=== PATIENT | female | born 1970 | race American Indian/Alaskan Native ===

== ENCOUNTER 2018-12-22 20:16 | Inpatient (IN) | payer OTHER ==
--- NOTE | 2018-12-22 20:41 | Emergency Department Report ---
Blank Doc - Documentation Documentation: This is a 48-year-old female that presents with SOB and bilateral leg swelling. This initial assessment/diagnostic orders/clinical plan/treatment(s) is/are subject to change based on patient's health status, clinical progression and re- assessment by fellow clinical providers in the ED. Further treatment and workup at subsequent clinical providers discretion. Patient/guardians urged not to elope from the ED as their condition may be serious if not clinically assessed and managed. Initial orders include: 1- Patient sent to MAIN ED for further evaluation and treatment 2- labs 3- EKG 4- CXR
[2018-12-22 21:11] LABS: Eosinophils # (Auto) 0.1 K/mm3 (0.0-0.4); Eosinophils % (Auto) 2.7 % (0.0-4.3); Hematocrit 37.5 % (30.3-42.9); Hemoglobin 12.5 gm/dl (10.1-14.3); Lymphocytes # (Auto) 1.3 K/mm3 (1.2-5.4); Lymphocytes % (Auto) 27.8 % (13.4-35.0); Mean Corpuscular HGB Conc 34 % (30-34); Mean Corpuscular Volume 94 fl (79-97); Monocytes # (Auto) 0.4 K/mm3 (0.0-0.8); Monocytes % (Auto) 7.5 % (0.0-7.3); Platelet Count 157 K/mm3 (140-440); Red Blood Count 3.99 M/mm3 (3.65-5.03)
[2018-12-22 21:36] LABS: Calcium 8.9 mg/dL (8.4-10.2)
[2018-12-22] MEDS ORDERED: NORMODYNE PO ONE (21:38)
--- NOTE | 2018-12-22 21:38 | Emergency Department Report ---
ED General Adult HPI - General Chief complaint: Dyspnea/Respdistress Stated complaint: LEG SWELLING/SOB Time Seen by Provider: 12/22/18 20:39 Source: patient Mode of arrival: Ambulatory Limitations: No Limitations - History of Present Illness Initial comments: CC: hot flashes, feet swelling, panic attacks HPI: Mrs. Orantes is a 48-year-old female with history of hypertension who presents with 1 month of feet swelling and shortness of breath. She felt as if she was going to menopause with hot flashes. She's had anxiety type attacks where she cannot breathe. While standing at her job at the [employer], she has bilateral feet swelling which improves with elevation. She has not taken blood pressure medicine in over one year. She no longer has health insurance at this time. Denies chest pain. Denies fever. Denies weight loss. She does not smoke tobacco. She does smoke marijuana. She has 8 children and one grandchild. -: Gradual, month(s) (1) Location: left, right, lower extremity Consistency: constant Improves with: other (elevation) Associated Symptoms: shortness of breath - Related Data Allergies Allergy/AdvReac Type Severity Reaction Status Date / Time No Known Allergies Allergy Verified 12/22/18 21:41 ED Review of Systems ROS: Stated complaint: LEG SWELLING/SOB Other details as noted in HPI Comment: All other systems reviewed and negative Constitutional: malaise Respiratory: shortness of breath Cardiovascular: edema ED Past Medical Hx - Past Medical History Previous Medical History?: Yes Hx Hypertension: Yes - Surgical History Past Surgical History?: No - Social History Smoking Status: Never Smoker Substance Use Type: Marijuana ED Physical Exam - General Limitations: No Limitations General appearance: alert, in no apparent distress - Head Head exam: Present: atraumatic, normocephalic - Eye Eye exam: Present: normal appearance - ENT ENT exam: Present: mucous membranes moist - Neck Neck exam: Present: normal inspection, full ROM - Respiratory Respiratory exam: Present: normal lung sounds bilaterally. Absent: respiratory distress, wheezes, rales, rhonchi - Cardiovascular Cardiovascular Exam: Present: regular rate, normal rhythm, normal heart sounds. Absent: systolic murmur, diastolic murmur, rubs, gallop - GI/Abdominal GI/Abdominal exam: Present: soft, normal bowel sounds. Absent: distended, tenderness, guarding, rebound - Extremities Exam Extremities exam: Present: pedal edema - Neurological Exam Neurological exam: Present: alert, oriented X3 - Psychiatric Psychiatric exam: Present: normal affect, normal mood - Skin Skin exam: Present: warm, dry, intact, normal color. Absent: rash ED Course Vital Signs 12/22/18 12/22/18 12/22/18 20:40 21:51 22:10 Temperature 97.5 F L 98.2 F Pulse Rate 102 H 98 H 94 H Respiratory 18 24 Rate Blood Pressure 223/162 212/149 Blood Pressure 224/160 [Left] O2 Sat by Pulse 98 95 Oximetry ED Medical Decision Making - Lab Data Result diagrams: 12/22/18 21:00 12/22/18 21:00 Laboratory Results - last 24 hr 12/22/18 12/22/18 21:00 21:00 WBC 4.7 RBC 3.99 Hgb 12.5 Hct 37.5 MCV 94 MCH 31 MCHC 34 RDW 14.0 Plt Count 157 Lymph % (Auto) 27.8 [place] % (Auto) 7.5 H Eos % (Auto) 2.7 Baso % (Auto) 1.0 Lymph # 1.3 [place]idge # 0.4 Eos # 0.1 Baso # 0.0 Seg Neutrophils % 61.0 Seg Neutrophils # 2.9 Sodium 138 Potassium 3.2 L Chloride 99.3 Carbon Dioxide 27 Anion Gap 15 BUN 24 H Creatinine 2.4 H Estimated GFR 22 BUN/Creatinine Ratio 10 Glucose 97 Calcium 8.9 Total Bilirubin 1.10 AST 20 ALT 26 Alkaline Phosphatase 135 H NT-Pro-B Natriuret Pep 53607 H Total Protein 6.1 L Albumin 3.0 L Albumin/Globulin Ratio 1.0 - EKG Data 12/22/18 23:20 EKG obtained 2050 Normal sinus rhythm rate 90 beats a minute normal axis prolonged QT interval positive LVH no evidence of acute infarct or ischemia - Radiology Data Radiology results: report reviewed, image reviewed Right-sided pleural effusion - Medical Decision Making Mrs. Orantes presents with quaternary stage severe untreated hypertension causing new-onset congestive heart failure, chronic kidney disease. Given IV labetalol here in the ED. Will need further treatment and evaluation. Admitted to hospital service. Labs reviewed noted for markedly elevated BNP 29,000. Elevated BUN/creatinine. Decreased GFR. Chest x-ray notable for right pleural effusion. Critical care attestation.: If time is entered above; I have spent that time in minutes in the direct care of this critically ill patient, excluding procedure time. ED Disposition Clinical Impression: Hypertensive emergency, Acute congestive heart failure, Acute renal insufficiency Disposition: OP ADMIT IP TO THIS HOSP Is pt being admited?: Yes Does the pt Need Aspirin: No Condition: Stable Instructions: Hypertension (ED)
--- NOTE | 2018-12-22 22:07 | XRay Report ---
PROCEDURE: XR CHEST ROUTINE 2V TECHNIQUE: PA and lateral chest radiographs were obtained. HISTORY: sob... leg swelling x 2wks COMPARISONS: None. FINDINGS: Heart: Heart is enlarged.. Mediastinum/Vessels: Normal. Lungs/Pleural space: Lungs are expanded. There are infiltrates at the lung bases. There is a small r ight pleural effusion. There is no pneumothorax.. Bony thorax: No acute osseous abnormality. IMPRESSION: Heart is enlarged.. Lungs are expanded. There are infiltrates at the lung bases. There is a small right pleural effusion. There is no pneumothorax... This document is electronically signed by Guillermo Blue MD., December 22 2018 10:05:31 PM ET
[2018-12-22] MEDS ORDERED: NORMODYNE IV ONE (22:34)
[2018-12-22] MEDS ORDERED: APRESOLINE IV ONE (23:18)
[2018-12-23] MEDS ORDERED: IBUPROFEN PO PRN (05:37)
[2018-12-23] MEDS ORDERED: REGLAN IV PRN ×2 (05:37→05:51)
[2018-12-23] MEDS ORDERED: TYLENOL PO PRN (05:37)
[2018-12-23] MEDS ORDERED: SODIUM CHLORIDE FLUSH SYRINGE 10 ML IV PRN (05:37)
[2018-12-23] MEDS ORDERED: MORPHINE IV PRN (05:37)
[2018-12-23] MEDS ORDERED: ZOFRAN IV PRN (05:37)
--- NOTE | 2018-12-23 05:42 | History and Physical Report ---
History of Present Illness Date of examination: 12/22/18 Date of admission: 12/22/18 23:18 Chief complaint: Swelling of feet-1 month Shortness of breath for 1 month History of present illness: 48-year-old female with history of hypertension -noncompliant for the past 1 year and not taking any medications because she lost her insurance comes in for increasing shortness of breath and swelling of the feet. This has been going on for 1 month. No chest pain. 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 Also shortness of breath on walking about 1 block. Patient has class III NYHA symptoms. No palpitations. No orthopnea. No PND attacks. No diaphoresis. No chest pain. Past Medical History Previous Medical History?: Yes Hx Hypertension: Yes Surgical History Past Surgical History?: No Social History Smoking Status: Never Smoker Substance Use Type: Marijuana Family history Htn Review of Systems ROS: Stated complaint: LEG SWELLING/SOB Other details as noted in HPI Comment: All other systems reviewed and negative Constitutional: malaise Respiratory: shortness of breath Cardiovascular: edema Medications and Allergies Allergies Allergy/AdvReac Type Severity Reaction Status Date / Time No Known Allergies Allergy Verified 12/22/18 21:41 Home Medications Medication Instructions Recorded Confirmed Last Taken Type No Known Home Medications [No 12/22/18 12/22/18 Unknown History Reported Home Medications] Exam - Constitutional Vitals: Temp Pulse Resp BP Pulse Ox 98.2 F 81 16 182/102 95 12/23/18 04:09 12/23/18 04:09 12/23/18 04:09 12/23/18 04:09 12/23/18 04:09 General appearance: Present: no acute distress, well-nourished - EENT Eyes: Present: PERRL ENT: hearing intact, clear oral mucosa - Neck Neck: Present: supple, normal ROM - Respiratory Respiratory effort: normal Respiratory: bilateral: CTA - Cardiovascular Heart rate: 96 Rhythm: regular Heart Sounds: Present: S1 & S2. Absent: rub, click - Extremities Extremities: no ischemia, pulses intact, pulses symmetrical, No edema Extremity abnormal: edema (2+) Peripheral Pulses: within normal limits - Abdominal General gastrointestinal: Present: soft, non-tender, non-distended, normal bowel sounds Female genitourinary: Present: normal - Rectal Rectal Exam: deferred - Integumentary Integumentary: Present: clear, warm, dry - Musculoskeletal Musculoskeletal: gait normal, strength equal bilaterally - Psychiatric Psychiatric: appropriate mood/affect, intact judgment & insight - Neurologic Neurologic: CNII-XII intact, moves all extremities - Allied Health Allied health notes reviewed: nursing, case management Results - Labs CBC & Chem 7: 12/22/18 21:00 12/22/18 21:00 Labs: Laboratory Last Values WBC 4.7 K/mm3 (4.5-11.0) 12/22/18 21:00 RBC 3.99 M/mm3 (3.65-5.03) 12/22/18 21:00 Hgb 12.5 gm/dl (10.1-14.3) 12/22/18 21:00 Hct 37.5 % (30.3-42.9) 12/22/18 21:00 MCV 94 fl (79-97) 12/22/18 21:00 MCH 31 pg (28-32) 12/22/18 21:00 MCHC 34 % (30-34) 12/22/18 21:00 RDW 14.0 % (13.2-15.2) 12/22/18 21:00 Plt Count 157 K/mm3 (140-440) 12/22/18 21:00 Lymph % (Auto) 27.8 % (13.4-35.0) 12/22/18 21:00 Luce % (Auto) 7.5 % (0.0-7.3) H 12/22/18 21:00 Eos % (Auto) 2.7 % (0.0-4.3) 12/22/18 21:00 Baso % (Auto) 1.0 % (0.0-1.8) 12/22/18 21:00 Lymph # 1.3 K/mm3 (1.2-5.4) 12/22/18 21:00 Luce # 0.4 K/mm3 (0.0-0.8) 12/22/18 21:00 Eos # 0.1 K/mm3 (0.0-0.4) 12/22/18 21:00 Baso # 0.0 K/mm3 (0.0-0.1) 12/22/18 21:00 Seg Neutrophils % 61.0 % (40.0-70.0) 12/22/18 21:00 Seg Neutrophils # 2.9 K/mm3 (1.8-7.7) 12/22/18 21:00 Sodium 138 mmol/L (137-145) 12/22/18 21:00 Potassium 3.2 mmol/L (3.6-5.0) L 12/22/18 21:00 Chloride 99.3 mmol/L (98-107) 12/22/18 21:00 Carbon Dioxide 27 mmol/L (22-30) 12/22/18 21:00 15 mmol/L 12/22/18 21:00 BUN 24 mg/dL (7-17) H 12/22/18 21:00 2.4 mg/dL (0.7-1.2) H 12/22/18 21:00 Estimated GFR 22 ml/min 12/22/18 21:00 10 % 12/22/18 21:00 Glucose 97 mg/dL (65-100) 12/22/18 21:00 Calcium 8.9 mg/dL (8.4-10.2) 12/22/18 21:00 1.10 mg/dL (0.1-1.2) 12/22/18 21:00 AST 20 units/L (5-40) 12/22/18 21:00 ALT 26 units/L (7-56) 12/22/18 21:00 135 units/L (35-129) H 12/22/18 21:00 NT-Pro-B Natriuret Pep 94379 pg/mL (0-450) H 12/22/18 21:00 6.1 g/dL (6.3-8.2) L 12/22/18 21:00 3.0 g/dL (3.9-5) L 12/22/18 21:00 1.0 % 12/22/18 21:00 Short CBC 12/22/18 Range/Units 21:00 WBC 4.7 (4.5-11.0) K/mm3 Hgb 12.5 (10.1-14.3) gm/dl Hct 37.5 (30.3-42.9) % Plt Count 157 (140-440) K/mm3 BMP 12/22/18 21:00 Sodium 138 Potassium 3.2 L Chloride 99.3 Carbon Dioxide 27 BUN 24 H Creatinine 2.4 H Glucose 97 Calcium 8.9 Liver Function 12/22/18 Range/Units 21:00 Total Bilirubin 1.10 (0.1-1.2) mg/dL AST 20 (5-40) units/L ALT 26 (7-56) units/L Alkaline Phosphatase 135 H (35-129) units/L Albumin 3.0 L (3.9-5) g/dL - Imaging and Cardiology EKG: report reviewed (heart rate of 97/m. Severe LVH with secondary repol arization abnormalities.) Imaging and Cardiology: Chest x-ray IMPRESSION: Heart is enlarged.. Lungs are expanded. There are infiltrates at the lung bases. There is a small right pleural effusion. There is no pneumothorax... Assessment and Plan Advance Directives: Yes (full code) VTE prophylaxis?: Chemical Plan of care discussed with patient/family: Yes - Patient Problems (1) Hypertensive emergency Current Visit: Yes Status: Acute Plan to address problem: Patient initiated on losartan 100 mg once a day, amlodipine 10 mg once a day and Coreg 6.25 mg every 12 hours. IV labetalol and IV hydralazine was given in the emergency room. IV hydralazine 10 mg every 3 hours when necessary to continue for blood pressure more than 160s/100 (2) Acute congestive heart failure Current Visit: Yes Status: Acute Qualifiers: Heart failure type: diastolic Qualified Code(s): I50.31 - Acute diastolic (congestive) heart failure Plan to address problem: IV Lasix initiated at 40 mg every 24 Echocardiogram ordered Cardiology consult requested (3) Acute renal insufficiency Current Visit: Yes Status: Acute Plan to address problem: Acute kidney injury Nephrology consult requested Possible ATN versus chronic kidney disease (4) Hypokalemia Current Visit: Yes Status: Acute Plan to address problem: Supplemented (5) DVT prophylaxis Current Visit: Yes Status: Acute Plan to address problem: Heparin 5000 every 12 and GI prophylaxis initiated
[2018-12-23] MEDS ORDERED: K-DUR PO ONE (05:55)
[2018-12-23] MEDS: NORVASC PO SCH ×2 (06:02→09:35)
[2018-12-23] MEDS: APRESOLINE IV PRN (06:36)
[2018-12-23] MEDS: COZAAR PO SCH ×2 (07:20→09:35)
[2018-12-23] MEDS: PEPCID PO SCH ×2 (09:36→21:44)
[2018-12-23] MEDS: COREG PO SCH ×2 (09:36→21:43)
[2018-12-23] MEDS: SODIUM CHLORIDE FLUSH SYRINGE 10 ML IV SCH ×2 (09:37→21:44)
[2018-12-23] MEDS ORDERED: PEPCID PO SCH (10:00)
--- NOTE | 2018-12-23 12:23 | Consultation ---
History of Present Illness Consult date: 12/23/18 Requesting physician: JEANNETTE LOPEZ Consult reason: congestive heart failure History of present illness: The pt is a 48-year-old female with history of uncontrolled hypertension. She is previously unknown to our practice. She presented with c/o BLE swelling and progressively worsening SOB for the past 1 month. She has not taken blood pressure medicine in over one year due to lack of health insurance. She denies any chest pain, palpitations, n/v, diaphoresis, dizziness or syncope. She denies any known CAD, AMI or HF. No prior cardiac w/u. Past History Past Medical History: hypertension Medications and Allergies Allergies Allergy/AdvReac Type Severity Reaction Status Date / Time No Known Allergies Allergy Verified 12/22/18 21:41 Home Medications Medication Instructions Recorded Confirmed Last Taken Type No Known Home Medications [No 12/22/18 12/22/18 Unknown History Reported Home Medications] Active Meds: Active Medications Acetaminophen (Tylenol) 650 mg PO Q4H PRN PRN Reason: Pain MILD(1-3)/Fever >100.5/BALDWIN Amlodipine Besylate (Norvasc) 10 mg PO QDAY [facility] Last Admin: 12/23/18 09:35 Dose: 10 mg Documented by: Carvedilol (Coreg) 6.25 mg PO BID [facility] Last Admin: 12/23/18 09:36 Dose: 6.25 mg Documented by: Famotidine (Pepcid) 10 mg PO BID [facility] Last Admin: 12/23/18 09:36 Dose: 10 mg Documented by: Hydralazine HCl (Apresoline) 10 mg IV Q3H PRN PRN Reason: Blood Pressure Last Admin: 12/23/18 06:36 Dose: 10 mg Documented by: Ibuprofen (Ibuprofen) 600 mg PO Q6H PRN PRN Reason: Pain, Mild (1-3) Losartan Potassium (Cozaar) 100 mg PO QDAY [facility] Last Admin: 12/23/18 09:35 Dose: 100 mg Documented by: Metoclopramide HCl (Reglan) 5 mg IV Q6H PRN PRN Reason: Nausea And Vomiting Morphine Sulfate (Morphine) 2 mg IV Q4H PRN PRN Reason: Pain, Moderate (4-6) Ondansetron HCl (Zofran) 4 mg IV Q8H PRN PRN Reason: Nausea And Vomiting Sodium Chloride (Sodium Chloride Flush Syringe 10 Ml) 10 ml IV BID LUDIVINA Last Admin: 12/23/18 09:37 Dose: 10 ml Documented by: Sodium Chloride (Sodium Chloride Flush Syringe 10 Ml) 10 ml IV PRN PRN PRN Reason: LINE FLUSH Review of Systems Constitutional: no weight loss, no weight gain, no fever, no chills, no sweats Ears, nose, mouth and throat: no ear pain, no nose pain, no sinus pressure, no sinus pain Cardiovascular: edema, shortness of breath, dyspnea on exertion, high blood pressure, leg edema, decreased exercise tolerance, no chest pain, no palpitations, no rapid/irregular heart beat, no syncope, no lightheadedness Respiratory: shortness of breath, dyspnea on exertion, no cough, no congestion, no wheezing, no pain on inspiration Gastrointestinal: no abdominal pain, no nausea, no vomiting, no diarrhea, no constipation, no change in bowel habits Genitourinary Female: no pelvic pain, no flank pain, no dysuria, no urinary frequency, no urgency Musculoskeletal: no neck stiffness, no neck pain, no shooting arm pain, no arm numbness/tingling, no low back pain, no shooting leg pain Integumentary: no rash, no pruritis, no redness, no sores, no wounds Neurological: no head injury, no paralysis, no weakness, no parathesias, no numbness, no tingling, no seizures, no syncope Psychiatric: no anxiety Endocrine: no cold intolerance, no heat intolerance Hematologic/Lymphatic: no easy bruising, no easy bleeding Allergic/Immunologic: no urticaria, no wheezing Physical Examination Vital Signs Temp Pulse Resp BP Pulse Ox 97.5 F L 102 H 18 223/162 98 12/22/18 20:40 12/22/18 20:40 12/22/18 20:40 12/22/18 20:40 12/22/18 20:40 General appearance: no acute distress HEENT: Positive: PERRL, Normocephaly, Mucus Membranes Moist Neck: Positive: neck supple, trachea midline Cardiac: Positive: Reg Rate and Rhythm, S1/S2 Lungs: Positive: Decreased Breath Sounds Neuro: Positive: Grossly Intact Abdomen: Negative: Tender Skin: Negative: Rash Musculoskeletal: No Pain Extremities: Present: +2 Edema (BLE) Results 12/22/18 21:00 12/22/18 21:00 Cardiac Enzymes 12/22/18 Range/Units 21:00 AST 20 (5-40) units/L CBC 12/22/18 Range/Units 21:00 WBC 4.7 (4.5-11.0) K/mm3 RBC 3.99 (3.65-5.03) M/mm3 Hgb 12.5 (10.1-14.3) gm/dl Hct 37.5 (30.3-42.9) % Plt Count 157 (140-440) K/mm3 Lymph # 1.3 (1.2-5.4) K/mm3 Pratt # 0.4 (0.0-0.8) K/mm3 Eos # 0.1 (0.0-0.4) K/mm3 Baso # 0.0 (0.0-0.1) K/mm3 Comprehensive Metabolic Panel 12/22/18 Range/Units 21:00 Sodium 138 (137-145) mmol/L Potassium 3.2 L (3.6-5.0) mmol/L Chloride 99.3 (98-107) mmol/L Carbon Dioxide 27 (22-30) mmol/L BUN 24 H (7-17) mg/dL Creatinine 2.4 H (0.7-1.2) mg/dL Glucose 97 (65-100) mg/dL Calcium 8.9 (8.4-10.2) mg/dL AST 20 (5-40) units/L ALT 26 (7-56) units/L Alkaline Phosphatase 135 H (35-129) units/L Total Protein 6.1 L (6.3-8.2) g/dL Albumin 3.0 L (3.9-5) g/dL - Imaging and Cardiology Echo: pending EKG: report reviewed, image reviewed EKG interpretations - Telemetry EKG Rhythm: Sinus Rhythm - EKG Sinus rhythms and dysrhythmias: sinus rhythm Chamber hypertrophy or enlargement: left ventricular hypertro Repolarization changes or abnormalities: repolarization abn secondary to ventricular hypertrophy Assessment and Plan Agree with coreg and amlodipine. D/c losartan in setting of renal insufficiency. Replete K+. Obtain echo. Will defer diuresis to nephrology in setting of renal insufficiency. Further recs to follow per hospital course. The patient has been seen in conjunction with Dr. Castillo who agrees with the assessment and plan of care. - Patient Problems (1) Acute heart failure Current Visit: Yes Status: Acute (2) Uncontrolled hypertension Current Visit: Yes Status: Acute (3) Acute renal failure Current Visit: Yes Status: Acute (4) Hypokalemia Current Visit: Yes Status: Acute
--- NOTE | 2018-12-23 12:25 | Progress Note ---
Assessment and Plan Assessment and plan: Accelerated hypertension. Patient initiated on losartan 100 mg once a day, amlodipine 10 mg once a day and Coreg 6.25 mg every 12 hours. IV labetalol and IV hydralazine was given in the emergency room. IV hydralazine 10 mg every 3 hours when necessary to continue for blood pressure more than 160s/100 Acute CHF. Await echocardiogram to determine etiology ?systolic/diastolic. Cardiology consult. Acute renal failure. Unsure of patient's baseline creatinine. Nephrology consultation pending. Hypokalemia. Replete potassium. History Interval history: No new issues overnight. Hospitalist Physical - Constitutional Vitals: Temp Pulse Resp BP Pulse Ox 98.3 F 82 18 133/91 97 12/23/18 12:13 12/23/18 12:13 12/23/18 12:13 12/23/18 12:13 12/23/18 12:13 General appearance: Present: no acute distress, well-nourished - EENT Eyes: Present: PERRL, EOM intact ENT: hearing intact, clear oral mucosa, dentition normal - Neck Neck: Present: supple, normal ROM - Respiratory Respiratory effort: normal Respiratory: bilateral: CTA - Cardiovascular Rhythm: regular Heart Sounds: Present: S1 & S2. Absent: gallop, rub - Extremities Extremities: no ischemia, No edema, Full ROM - Abdominal General gastrointestinal: soft, non-tender, non-distended, normal bowel sounds - Integumentary Integumentary: Present: clear, warm, dry - Neurologic Neurologic: CNII-XII intact, moves all extremities Results - Labs CBC & Chem 7: 12/22/18 21:00 12/22/18 21:00 Labs: Laboratory Last Values WBC 4.7 K/mm3 (4.5-11.0) 12/22/18 21:00 RBC 3.99 M/mm3 (3.65-5.03) 12/22/18 21:00 Hgb 12.5 gm/dl (10.1-14.3) 12/22/18 21:00 Hct 37.5 % (30.3-42.9) 12/22/18 21:00 MCV 94 fl (79-97) 12/22/18 21:00 MCH 31 pg (28-32) 12/22/18 21:00 MCHC 34 % (30-34) 12/22/18 21:00 RDW 14.0 % (13.2-15.2) 12/22/18 21:00 Plt Count 157 K/mm3 (140-440) 12/22/18 21:00 Lymph % (Auto) 27.8 % (13.4-35.0) 12/22/18 21:00 [place]rentiss % (Auto) 7.5 % (0.0-7.3) H 12/22/18 21:00 Eos % (Auto) 2.7 % (0.0-4.3) 12/22/18 21:00 Baso % (Auto) 1.0 % (0.0-1.8) 12/22/18 21:00 Lymph # 1.3 K/mm3 (1.2-5.4) 12/22/18 21:00 Prentiss # 0.4 K/mm3 (0.0-0.8) 12/22/18 21:00 Eos # 0.1 K/mm3 (0.0-0.4) 12/22/18 21:00 Baso # 0.0 K/mm3 (0.0-0.1) 12/22/18 21:00 Seg Neutrophils % 61.0 % (40.0-70.0) 12/22/18 21:00 Seg Neutrophils # 2.9 K/mm3 (1.8-7.7) 12/22/18 21:00 Sodium 138 mmol/L (137-145) 12/22/18 21:00 Potassium 3.2 mmol/L (3.6-5.0) L 12/22/18 21:00 Chloride 99.3 mmol/L (98-107) 12/22/18 21:00 Carbon Dioxide 27 mmol/L (22-30) 12/22/18 21:00 15 mmol/L 12/22/18 21:00 BUN 24 mg/dL (7-17) H 12/22/18 21:00 2.4 mg/dL (0.7-1.2) H 12/22/18 21:00 Estimated GFR 22 ml/min 12/22/18 21:00 10 % 12/22/18 21:00 Glucose 97 mg/dL (65-100) 12/22/18 21:00 4.8 % (4-6) 12/23/18 05:57 Calcium 8.9 mg/dL (8.4-10.2) 12/22/18 21:00 1.10 mg/dL (0.1-1.2) 12/22/18 21:00 AST 20 units/L (5-40) 12/22/18 21:00 ALT 26 units/L (7-56) 12/22/18 21:00 135 units/L (35-129) H 12/22/18 21:00 NT-Pro-B Natriuret Pep 05586 pg/mL (0-450) H 12/22/18 21:00 6.1 g/dL (6.3-8.2) L 12/22/18 21:00 3.0 g/dL (3.9-5) L 12/22/18 21:00 1.0 % 12/22/18 21:00 Active Medications - Current Medications Current Medications: Generic Name Dose Route Start Last Admin Trade Name Freq PRN Reason Stop Dose Admin Acetaminophen 650 mg 12/23/18 05:37 Tylenol PO Q4H PRN Pain MILD(1-3)/Fever >100.5/BALDWIN Amlodipine Besylate 10 mg 12/23/18 06:00 12/23/18 09:35 Norvasc PO 10 mg QDAY LUDIVINA Administration Carvedilol 6.25 mg 12/23/18 10:00 12/23/18 09:36 Coreg PO 6.25 mg BID LUDIVINA Administration Famotidine 10 mg 12/23/18 10:00 12/23/18 09:36 Pepcid PO 10 mg BID LUDIVINA Administration Hydralazine HCl 10 mg 12/23/18 05:57 12/23/18 06:36 Apresoline IV 10 mg Q3H PRN Administration Blood Pressure Ibuprofen 600 mg 12/23/18 05:37 Ibuprofen PO Q6H PRN Pain, Mild (1-3) Losartan Potassium 100 mg 12/23/18 06:00 12/23/18 09:35 Cozaar PO 100 mg QDAY LUDIVINA Administration Metoclopramide HCl 5 mg 12/23/18 05:51 Reglan IV Q6H PRN Nausea And Vomiting Morphine Sulfate 2 mg 12/23/18 05:37 Morphine IV Q4H PRN Pain, Moderate (4-6) Ondansetron HCl 4 mg 12/23/18 05:37 Zofran IV Q8H PRN Nausea And Vomiting Sodium Chloride 10 ml 12/23/18 10:00 12/23/18 09:37 Sodium Chloride Flush Syringe 10 Ml IV 10 ml BID LUDIVINA Administration Sodium Chloride 10 ml 12/23/18 05:37 Sodium Chloride Flush Syringe 10 Ml IV PRN PRN LINE FLUSH
--- NOTE | 2018-12-23 15:47 | Consultation ---
History of Present Illness - Reason for Consult Consult date: 12/23/18 acute renal failure - History of Present Illness The pt with poorly controlled HTN because she has been out of her meds for the last year, she was admitted for worsening SOB and possible CHF, her labs are signfifcant for elevated BNP and Cr. renal consult was requested for abnormal kidney function Past History Past Medical History: hypertension Medications and Allergies Allergies Allergy/AdvReac Type Severity Reaction Status Date / Time No Known Allergies Allergy Verified 12/22/18 21:41 Home Medications Medication Instructions Recorded Confirmed Last Taken Type No Known Home Medications [No 12/22/18 12/22/18 Unknown History Reported Home Medications] Active Meds: Active Medications Acetaminophen (Tylenol) 650 mg PO Q4H PRN PRN Reason: Pain MILD(1-3)/Fever >100.5/BALDWIN Amlodipine Besylate (Norvasc) 10 mg PO QDAY [facility] Last Admin: 12/23/18 09:35 Dose: 10 mg Documented by: Carvedilol (Coreg) 6.25 mg PO BID [facility] Last Admin: 12/23/18 09:36 Dose: 6.25 mg Documented by: Famotidine (Pepcid) 10 mg PO BID [facility] Last Admin: 12/23/18 09:36 Dose: 10 mg Documented by: Hydralazine HCl (Apresoline) 10 mg IV Q3H PRN PRN Reason: Blood Pressure Last Admin: 12/23/18 06:36 Dose: 10 mg Documented by: Ibuprofen (Ibuprofen) 600 mg PO Q6H PRN PRN Reason: Pain, Mild (1-3) Metoclopramide HCl (Reglan) 5 mg IV Q6H PRN PRN Reason: Nausea And Vomiting Morphine Sulfate (Morphine) 2 mg IV Q4H PRN PRN Reason: Pain, Moderate (4-6) Ondansetron HCl (Zofran) 4 mg IV Q8H PRN PRN Reason: Nausea And Vomiting Sodium Chloride (Sodium Chloride Flush Syringe 10 Ml) 10 ml IV BID [facility] Last Admin: 12/23/18 09:37 Dose: 10 ml Documented by: Sodium Chloride (Sodium Chloride Flush Syringe 10 Ml) 10 ml IV PRN PRN PRN Reason: LINE FLUSH Review of Systems All systems: negative (SOB and swelling in legs) Exam - Vital Signs Vital signs: Vital Signs Temp Pulse Resp BP Pulse Ox 97.5 F L 102 H 18 223/162 98 12/22/18 20:40 12/22/18 20:40 12/22/18 20:40 12/22/18 20:40 12/22/18 20:40 - General Appearance General appearance: well-developed, well-nourished, appears stated age EENT: ATNC, PERRL, mucous membranes moist Neck: Present: neck supple Respiratory: Decreased Breath Sounds Heart: regular, S1S2 Gastrointestinal: Present: normoactive bowel sounds. Absent: tenderness Integumentary: no rash, warm and dry Neurologic: no focal deficit, no asterixis, alert and oriented x3 Musculoskeletal: Present: deferred, other (trace pitting edema in BLE) Psychiatric: mood/affect appropriate, cooperative Results - Lab Results 12/22/18 21:00 12/22/18 21:00 Most recent lab results Calcium 8.9 mg/dL (8.4-10.2) 12/22/18 21:00 Assessment and Plan renal failure CKD secondary to HTN vs. YG CHF SOB HTN - baseline to be established - urine lytes, UA and urine protein ordered - renal US ordered - cont lasix for now - renally dose meds - strict I&O - daily weight Gus Weiss MD [phone]
--- NOTE | 2018-12-23 17:55 | Ultrasound Report ---
PROCEDURE: US RENAL BILAT TECHNIQUE: Transverse longitudinal sonograms obtained with horner scale sonography HISTORY: renal failure COMPARISONS: None FINDINGS: Right kidney measures 9.4 x 4.3 x 5.8 cm. Cortex 1.1 cm. Increased cortical echogenicity. Central cys t measuring 2.7 x 2.4 x 2.4 cm. Minimal pelviectasis. Left kidney measures 9.7 x 4.7 x 4.9 cm. Cortex 1.4 cm. Increased cortical echogenicity. Lower pole c yst measuring 0.9 x 0.7 x 0.5 cm. Mild hydronephrosis. Contracted bladder was small amount of urine. IMPRESSION: Kidneys demonstrate increased echogenicity compatible with chronic renal disease Mild left hydronephrosis. Right pelviectasis. Bilateral renal cysts Bladder unremarkable. This document is electronically signed by Binu Lindo MD., December 23 2018 05:53:17 PM ET
[2018-12-24] MEDS: APRESOLINE IV PRN ×2 (01:30→12:49)
[2018-12-24 02:19] LABS: Creatinine,Urine 76.7 mg/dL (0.1-20.0); Protein/Creatinine Ratio,Urine 2.23
[2018-12-24 02:23] LABS: Bilirubin,Urine NEG (Negative); Blood,Urine NEG (Negative); Color,Urine Yellow (Yellow); Urobilinogen,Urine < 2.0 mg/dL (<2.0); WBC,Urine < 1.0 /HPF (0.0-6.0)
[2018-12-24 06:04] LABS: Eosinophils # (Auto) 0.2 K/mm3 (0.0-0.4); Eosinophils % (Auto) 4.1 % (0.0-4.3); Hematocrit 35.7 % (30.3-42.9); Hemoglobin 12.1 gm/dl (10.1-14.3); Lymphocytes # (Auto) 1.3 K/mm3 (1.2-5.4); Lymphocytes % (Auto) 34.6 % (13.4-35.0); Mean Corpuscular HGB Conc 34 % (30-34); Mean Corpuscular Volume 93 fl (79-97); Monocytes # (Auto) 0.3 K/mm3 (0.0-0.8); Monocytes % (Auto) 8.5 % (0.0-7.3); Platelet Count 167 K/mm3 (140-440); Red Blood Count 3.84 M/mm3 (3.65-5.03)
[2018-12-24 06:29] LABS: Albumin 2.7 g/dL (3.9-5); Calcium 8.5 mg/dL (8.4-10.2)
--- NOTE | 2018-12-24 08:56 | Progress Note ---
Assessment and Plan renal failure CKD secondary to HTN vs. YG CHF SOB HTN - baseline to be established, currently stable. - noted to have non nephrotic range proteinuria but inactive urine sediment, will check secondary GN work up - she can be discharged from renal standpoint, to be followed in my office upon discharge - renal US negative for obstruction - renally dose meds - strict I&O - daily weight Gus Weiss MD [phone] Subjective Date of service: 12/24/18 Principal diagnosis: acute on chronic kidney disease Interval history: feels much better Objective - Vital Signs Vital signs: Vital Signs - 12hr 12/23/18 12/23/18 12/23/18 21:43 22:00 23:21 Temperature 98.5 F Pulse Rate 88 81 Respiratory 16 Rate Blood Pressure 111/51 163/107 O2 Sat by Pulse 98 97 Oximetry 12/24/18 12/24/18 12/24/18 00:00 01:30 04:02 Temperature 98.8 F Pulse Rate 83 85 84 Respiratory 29 H Rate Blood Pressure 163/107 147/101 O2 Sat by Pulse 96 Oximetry - General Appearance General appearance: well-developed, well-nourished, appears stated age EENT: ATNC, PERRL, mucous membranes moist Neck: no JVD, no carotid bruit Respiratory: Present: Clear to Ascultation. Absent: Rales, Ronchi Cardiology: regular, S1S2 Gastrointestinal: normoactive bowel sounds, no tenderness, no distended Integumentary: no rash, warm and dry Neurologic: no focal deficit, no asterixis, alert and oriented x3 Musculoskeletal: other (no edema in BLE) Psychiatric: mood/affect appropriate, cooperative - Lab 12/24/18 04:31 12/24/18 04:31 Most recent lab results Calcium 8.5 mg/dL (8.4-10.2) 12/24/18 04:31 Phosphorus 3.50 mg/dL (2.5-4.5) 12/24/18 04:31 76.7 mg/dL (0.1-20.0) H 12/24/18 01:30 29 mmol/L 12/24/18 01:30 171 mg/dL (5-11.8) H 12/24/18 01:30 Medications & Allergies - Medications Allergies/Adverse Reactions: Allergies No Known Allergies Allergy (Verified 12/22/18 21:41) Home Medications: Home Medications Medication Instructions Recorded Confirmed Last Taken Type No Known Home Medications [No 12/22/18 12/22/18 Unknown History Reported Home Medications] Active Medications: Generic Name Dose Route Start Last Admin Trade Name Freq PRN Reason Stop Dose Admin Acetaminophen 650 mg 12/23/18 05:37 Tylenol PO Q4H PRN Pain MILD(1-3)/Fever >100.5/BALDWIN Amlodipine Besylate 10 mg 12/23/18 06:00 12/23/18 09:35 Norvasc PO 10 mg QDAY LUDIV[facility] Administration Carvedilol 6.25 mg 12/23/18 10:00 12/23/18 21:43 Coreg PO 6.25 mg BID LUDIVINA Administration Famotidine 10 mg 12/23/18 10:00 12/23/18 21:44 Pepcid PO 10 mg BID LUD[facility]INA Administration Hydralazine HCl 10 mg 12/23/18 05:57 12/24/18 01:30 Apresoline IV 10 mg Q3H PRN Administration Blood Pressure Metoclopramide HCl 5 mg 12/23/18 05:51 Reglan IV Q6H PRN Nausea And Vomiting Morphine Sulfate 2 mg 12/23/18 05:37 Morphine IV Q4H PRN Pain, Moderate (4-6) Ondansetron HCl 4 mg 12/23/18 05:37 Zofran IV Q8H PRN Nausea And Vomiting Sodium Chloride 10 ml 12/23/18 10:00 12/23/18 21:44 Sodium Chloride Flush Syringe 10 Ml IV 10 ml BID LUD[facility]INA Administration Sodium Chloride 10 ml 12/23/18 05:37 Sodium Chloride Flush Syringe 10 Ml IV PRN PRN LINE FLUSH
[2018-12-24] MEDS: PEPCID PO SCH ×2 (10:03→21:34)
[2018-12-24] MEDS: NORVASC PO SCH (10:03)
[2018-12-24] MEDS: COREG PO SCH ×3 (10:04→21:34)
[2018-12-24] MEDS: SODIUM CHLORIDE FLUSH SYRINGE 10 ML IV SCH ×2 (10:04→21:35)
--- NOTE | 2018-12-24 12:13 | Progress Note ---
Assessment and Plan Assessment and plan: Accelerated hypertension. Start Cardizem and continue Coreg 6.25 mg every 12 hours. IV hydralazine 10 mg every 3 hours when necessary Acute CHF. Await echocardiogram to determine etiology ?systolic/diastolic. Cardiology consult. Chronic kidney failure. Renal ultrasound suggests chronic medical renal disease. Nephrology following. Creatinine is stable. Left hydronephrosis. Consult urology. Hypokalemia. Replete potassium. History Interval history: No new issues overnight. Hospitalist Physical - Constitutional Vitals: Temp Pulse Resp BP Pulse Ox 98.8 F 89 19 193/125 99 12/24/18 04:02 12/24/18 10:04 12/24/18 10:00 12/24/18 10:04 12/24/18 10:00 General appearance: Present: no acute distress - EENT Eyes: Present: PERRL, EOM intact ENT: hearing intact, clear oral mucosa, dentition normal - Neck Neck: Present: supple, normal ROM - Respiratory Respiratory effort: normal Respiratory: bilateral: CTA - Cardiovascular Rhythm: regular Heart Sounds: Present: S1 & S2. Absent: gallop, rub - Extremities Extremities: no ischemia, No edema, Full ROM - Abdominal General gastrointestinal: soft, non-tender, non-distended, normal bowel sounds - Integumentary Integumentary: Present: clear, warm, dry - Neurologic Neurologic: CNII-XII intact, moves all extremities Results - Labs CBC & Chem 7: 12/24/18 04:31 12/24/18 04:31 Labs: Laboratory Last Values WBC 3.8 K/mm3 (4.5-11.0) L 12/24/18 04:31 RBC 3.84 M/mm3 (3.65-5.03) 12/24/18 04:31 Hgb 12.1 gm/dl (10.1-14.3) 12/24/18 04:31 Hct 35.7 % (30.3-42.9) 12/24/18 04:31 MCV 93 fl (79-97) 12/24/18 04:31 MCH 32 pg (28-32) 12/24/18 04:31 MCHC 34 % (30-34) 12/24/18 04:31 RDW 14.0 % (13.2-15.2) 12/24/18 04:31 Plt Count 167 K/mm3 (140-440) 12/24/18 04:31 Lymph % (Auto) 34.6 % (13.4-35.0) 12/24/18 04:31 [place] % (Auto) 8.5 % (0.0-7.3) H 12/24/18 04:31 Eos % (Auto) 4.1 % (0.0-4.3) 12/24/18 04:31 Baso % (Auto) 1.0 % (0.0-1.8) 12/24/18 04:31 Lymph # 1.3 K/mm3 (1.2-5.4) 12/24/18 04:31 [place] # 0.3 K/mm3 (0.0-0.8) 12/24/18 04:31 Eos # 0.2 K/mm3 (0.0-0.4) 12/24/18 04:31 Baso # 0.0 K/mm3 (0.0-0.1) 12/24/18 04:31 Seg Neutrophils % 51.8 % (40.0-70.0) 12/24/18 04:31 Seg Neutrophils # 2.0 K/mm3 (1.8-7.7) 12/24/18 04:31 Sodium 140 mmol/L (137-145) 12/24/18 04:31 Potassium 3.6 mmol/L (3.6-5.0) 12/24/18 04:31 Chloride 103.8 mmol/L (98-107) 12/24/18 04:31 Carbon Dioxide 24 mmol/L (22-30) 12/24/18 04:31 16 mmol/L 12/24/18 04:31 BUN 19 mg/dL (7-17) H 12/24/18 04:31 2.3 mg/dL (0.7-1.2) H 12/24/18 04:31 Estimated GFR 27 ml/min 12/24/18 04:31 8 % 12/24/18 04:31 Glucose 102 mg/dL (65-100) H 12/24/18 04:31 4.8 % (4-6) 12/23/18 05:57 Calcium 8.5 mg/dL (8.4-10.2) 12/24/18 04:31 Phosphorus 3.50 mg/dL (2.5-4.5) 12/24/18 04:31 0.80 mg/dL (0.1-1.2) 12/24/18 04:31 AST 14 units/L (5-40) 12/24/18 04:31 ALT 17 units/L (7-56) 12/24/18 04:31 111 units/L (35-129) 12/24/18 04:31 225 units/L (91-180) H 12/24/18 09:47 NT-Pro-B Natriuret Pep 70914 pg/mL (0-450) H 12/22/18 21:00 5.6 g/dL (6.3-8.2) L 12/24/18 04:31 2.7 g/dL (3.9-5) L 12/24/18 04:31 0.9 % 12/24/18 04:31 Yellow (Yellow) 12/24/18 01:30 Clear (Clear) 12/24/18 01:30 7.0 (5.0-7.0) 12/24/18 01:30 Ur Specific [place] 1.009 (1.003-1.030) 12/24/18 01:30 100 mg/dl mg/dL (Negative) 12/24/18 01:30 Neg mg/dL (Negative) 12/24/18 01:30 Neg mg/dL (Negative) 12/24/18 01:30 Neg (Negative) 12/24/18 01:30 Neg (Negative) 12/24/18 01:30 Neg (Negative) 12/24/18 01:30 < 2.0 mg/dL (<2.0) 12/24/18 01:30 Ur Leukocyte Esterase Neg (Negative) 12/24/18 01:30 < 1.0 /HPF (0.0-6.0) 12/24/18 01:30 2.0 /HPF (0.0-6.0) 12/24/18 01:30 U Epithel Cells (Auto) 1.0 /HPF (0-13.0) 12/24/18 01:30 None seen (None Seen) 12/24/18 01:30 76.7 mg/dL (0.1-20.0) H 12/24/18 01:30 Protein/Creatinin Ratio 2.23 12/24/18 01:30 29 mmol/L 12/24/18 01:30 171 mg/dL (5-11.8) H 12/24/18 01:30 Hep Bs Antigen Non-reactive (Negative) 12/24/18 09:46 Non-reactive (NonReactive) 12/24/18 09:37 HIV 1&2 Antibody Rapid Non react (Non React) 12/24/18 09:46 Non react (Non React) 12/24/18 09:46 Active Medications - Current Medications Current Medications: Generic Name Dose Route Start Last Admin Trade Name Freq PRN Reason Stop Dose Admin Acetaminophen 650 mg 12/23/18 05:37 Tylenol PO Q4H PRN Pain MILD(1-3)/Fever >100.5/BALDWIN Amlodipine Besylate 10 mg 12/23/18 06:00 12/24/18 10:03 Norvasc PO 10 mg QDAY LUD[facility] Administration Carvedilol 6.25 mg 12/23/18 10:00 12/24/18 10:04 Coreg PO 6.25 mg BID [facility]UD[facility] Administration Famotidine 10 mg 12/23/18 10:00 12/24/18 10:03 Pepcid PO 10 mg BID [facility] Administration Hydralazine HCl 10 mg 12/23/18 05:57 12/24/18 01:30 Apresoline IV 10 mg Q3H PRN Administration Blood Pressure Metoclopramide HCl 5 mg 12/23/18 05:51 Reglan IV Q6H PRN Nausea And Vomiting Morphine Sulfate 2 mg 12/23/18 05:37 Morphine IV Q4H PRN Pain, Moderate (4-6) Ondansetron HCl 4 mg 12/23/18 05:37 Zofran IV Q8H PRN Nausea And Vomiting Sodium Chloride 10 ml 12/23/18 10:00 12/24/18 10:04 Sodium Chloride Flush Syringe 10 Ml IV 10 ml BID [facility] Administration Sodium Chloride 10 ml 12/23/18 05:37 Sodium Chloride Flush Syringe 10 Ml IV PRN PRN LINE FLUSH
[2018-12-24 12:56] LABS: Smear for Schistocytes None Seen
--- NOTE | 2018-12-24 13:39 | Consultation ---
History of Present Illness - Reason for Consult Consult date: 12/24/18 - History of Present Illness HPI: Mrs. Orantes is a 48-year-old female with history of hypertension who presents with 1 month of feet swelling and shortness of breath. She felt as if she was going to menopause with hot flashes. She's had anxiety type attacks where she cannot breathe. While standing at her job at the [employer], she has bilateral feet swelling which improves with elevation. She has not taken bl ood pressure medicine in over one year. She no longer has health insurance at this time. Denies chest pain. Denies fever. Denies weight loss. She does not smoke tobacco. She does smoke marijuana. She has 8 children and one grandchild. Pt denies any history renal us - mild hydro abd soft A/P hydro CTAP Past History Past Medical History: hypertension Medications and Allergies Allergies Allergy/AdvReac Type Severity Reaction Status Date / Time No Known Allergies Allergy Verified 12/22/18 21:41 Home Medications Medication Instructions Recorded Confirmed Last Taken Type No Known Home Medications [No 12/22/18 12/22/18 Unknown History Reported Home Medications] Active Meds: Active Medications Acetaminophen (Tylenol) 650 mg PO Q4H PRN PRN Reason: Pain MILD(1-3)/Fever >100.5/BALDWIN Carvedilol (Coreg) 6.25 mg PO BID [facility] Last Admin: 12/24/18 10:04 Dose: 6.25 mg Documented by: Diltiazem HCl (Cardizem) 60 mg PO Q6HR [facility] Famotidine (Pepcid) 10 mg PO BID [facility] Last Admin: 12/24/18 10:03 Dose: 10 mg Documented by: Hydralazine HCl (Apresoline) 10 mg IV Q3H PRN PRN Reason: Blood Pressure Last Admin: 12/24/18 12:49 Dose: 10 mg Documented by: Metoclopramide HCl (Reglan) 5 mg IV Q6H PRN PRN Reason: Nausea And Vomiting Morphine Sulfate (Morphine) 2 mg IV Q4H PRN PRN Reason: Pain, Moderate (4-6) Ondansetron HCl (Zofran) 4 mg IV Q8H PRN PRN Reason: Nausea And Vomiting Sodium Chloride (Sodium Chloride Flush Syringe 10 Ml) 10 ml IV BID [facility] Last Admin: 12/24/18 10:04 Dose: 10 ml Documented by: Sodium Chloride (Sodium Chloride Flush Syringe 10 Ml) 10 ml IV PRN PRN PRN Reason: LINE FLUSH Exam - Constitutional Vitals: Temp Pulse Resp BP Pulse Ox 98.3 F 82 19 162/103 99 12/24/18 12:08 12/24/18 12:51 12/24/18 10:00 12/24/18 12:51 12/24/18 12:08 Results - Labs CBC & Chem 7: 12/24/18 04:31 12/24/18 04:31 Labs: Abnormal lab results 12/24/18 12/24/18 12/24/18 Range/Units 01:30 04:31 04:31 WBC 3.8 L (4.5-11.0) K/mm3 [place] % (Auto) 8.5 H (0.0-7.3) % BUN 19 H (7-17) mg/dL Creatinine 2.3 H (0.7-1.2) mg/dL Glucose 102 H (65-100) mg/dL Lactate Dehydrogenase (91-180) units/L Total Protein 5.6 L (6.3-8.2) g/dL Albumin 2.7 L (3.9-5) g/dL Urine Creatinine 76.7 H (0.1-20.0) mg/dL Urine Total Protein 171 H (5-11.8) mg/dL 12/24/18 Range/Units 09:47 WBC (4.5-11.0) K/mm3 [place] % (Auto) (0.0-7.3) % BUN (7-17) mg/dL Creatinine (0.7-1.2) mg/dL Glucose (65-100) mg/dL Lactate Dehydrogenase 225 H (91-180) units/L Total Protein (6.3-8.2) g/dL Albumin (3.9-5) g/dL Urine Creatinine (0.1-20.0) mg/dL Urine Total Protein (5-11.8) mg/dL
[2018-12-24] MEDS ORDERED: COREG PO SCH (14:09)
--- NOTE | 2018-12-24 14:18 | Progress Note ---
Assessment and Plan Echo reviewed - EF 30-35%, mod LVH, restrictive diastolic filling, LA severely dilated, RV systolic function mildly reduced, mild AR, mild MR, mild TR, pulm HTN with RVSP 52mmHg, small pericardial effusion, small pleural effusion. Optimize BPs - increase coreg and add hydralazine, cont norvasc, no ACEI/ARB at this time in setting of renal insufficiency. Will plan for lexiscan MPI stress test in AM to r/o ischemic CMP. NPO after MN. Pt found to have mild hydronephrosis on renal US. Urology following. The patient has been seen in conjunction with Dr. Castillo who agrees with the assessment and plan of care. - Patient Problems (1) Acute HFrEF (heart failure with reduced ejection fraction) Current Visit: Yes Status: Acute (2) Cardiomyopathy Current Visit: Yes Status: Chronic (3) Uncontrolled hypertension Current Visit: Yes Status: Acute (4) Acute renal failure Current Visit: Yes Status: Acute (5) Hypokalemia Current Visit: Yes Status: Acute (6) Hydronephrosis Current Visit: Yes Status: Acute Subjective Date of service: 12/24/18 Principal diagnosis: acute on chronic kidney disease Interval history: pt resting up at bedside, states she is feeling better today, BLE edema nearly resolved. in SR, no acute events overnight. Objective Last Vital Signs Temp 98.3 F 12/24/18 12:08 Pulse 82 12/24/18 12:51 Resp 19 12/24/18 10:00 BP 162/103 12/24/18 12:51 Pulse Ox 99 12/24/18 12:08 - Physical Examination General: No Apparent Distress HEENT: Positive: PERRL, Normocephaly, Mucus Membranes Moist Neck: Positive: neck supple Cardiac: Positive: Reg Rate and Rhythm, S1/S2 Lungs: Positive: Decreased Breath Sounds Neuro: Positive: Grossly Intact Abdomen: Negative: Tender Skin: Negative: Rash Musculoskeletal: No Pain Extremities: Present: edema (trace BLE) - Labs and Meds Cardiac Enzymes 12/24/18 12/24/18 Range/Units 04:31 09:47 AST 14 (5-40) units/L Lactate Dehydrogenase 225 H (91-180) units/L CBC 12/24/18 Range/Units 04:31 WBC 3.8 L (4.5-11.0) K/mm3 RBC 3.84 (3.65-5.03) M/mm3 Hgb 12.1 (10.1-14.3) gm/dl Hct 35.7 (30.3-42.9) % Plt Count 167 (140-440) K/mm3 Lymph # 1.3 (1.2-5.4) K/mm3 [place] # 0.3 (0.0-0.8) K/mm3 Eos # 0.2 (0.0-0.4) K/mm3 Baso # 0.0 (0.0-0.1) K/mm3 Comprehensive Metabolic Panel 12/24/18 Range/Units 04:31 Sodium 140 (137-145) mmol/L Potassium 3.6 (3.6-5.0) mmol/L Chloride 103.8 (98-107) mmol/L Carbon Dioxide 24 (22-30) mmol/L BUN 19 H (7-17) mg/dL Creatinine 2.3 H (0.7-1.2) mg/dL Glucose 102 H (65-100) mg/dL Calcium 8.5 (8.4-10.2) mg/dL AST 14 (5-40) units/L ALT 17 (7-56) units/L Alkaline Phosphatase 111 (35-129) units/L Total Protein 5.6 L (6.3-8.2) g/dL Albumin 2.7 L (3.9-5) g/dL - Imaging and Cardiology EKG: report reviewed, image reviewed Echo: report reviewed - Telemetry EKG Rhythm: Sinus Rhythm - EKG Sinus rhythms and dysrhythmias: sinus rhythm Chamber hypertrophy or enlargement: left ventricular hypertro Repolarization changes or abnormalities: repolarization abn secondary to ventricular hypertrophy
[2018-12-24] MEDS: APRESOLINE PO SCH ×2 (15:23→21:35)
--- NOTE | 2018-12-24 16:46 | Cat Scan Report ---
PROCEDURE: CT ABDOMEN PELVIS WO CON TECHNIQUE: CT abdomen and pelvis without contrast HISTORY: hudronephrosis COMPARISONS: Correlated with a renal ultrasound of December 23, 2018 FINDINGS: There is a moderate to large right pleural effusion with compressive atelectasis in the right lower l obe. There is small left effusion with compressive atelectasis in the left lower lobe Nonenhanced images of the spleen and liver are unremarkable. Pancreas is not well seen. Stomach is mo derately distended. Note is made of a right renal cyst which was described on recent ultrasound. There is mild left pelvo caliectasis as previously noted. There is diffuse haziness throughout the mesentery and abdominal fatty tissues. No definitive small bowel distention observed. There is stool and gas within the colon. No free air identified. There is small amount of free fluid noted in the pelvis. There is a diffuse edematous appearing changes within the subcutaneous soft tissues. There is some po oling of fluid seen posteriorly in the subcutaneous soft tissues. IMPRESSION: Bilateral pleural effusions Diffuse edematous change throughout the intra-abdominal and extra-abdominal tissues Small amount of ascites Findings are most consistent with anasarca pattern. There is mild left hydronephrosis Right renal cyst noted these have been described on recent ultrasound. This document is electronically signed by Binu Brooks MD., December 24 2018 04:44:26 PM ET
[2018-12-24] MEDS ORDERED: CARDIZEM PO SCH (18:00)
[2018-12-25] MEDS: APRESOLINE PO SCH ×2 (05:30→22:03)
[2018-12-25 06:02] LABS: Basophils # (Auto) 0.1 K/mm3 (0.0-0.1); Basophils % (Auto) 1.5 % (0.0-1.8); Eosinophils # (Auto) 0.1 K/mm3 (0.0-0.4); Eosinophils % (Auto) 3.7 % (0.0-4.3); Hematocrit 31.9 % (30.3-42.9); Hemoglobin 10.9 gm/dl (10.1-14.3); Lymphocytes # (Auto) 1.2 K/mm3 (1.2-5.4); Lymphocytes % (Auto) 34.2 % (13.4-35.0); Mean Corpuscular HGB Conc 34 % (30-34); Mean Corpuscular Volume 94 fl (79-97); Monocytes # (Auto) 0.4 K/mm3 (0.0-0.8); Monocytes % (Auto) 10.3 % (0.0-7.3); Platelet Count 147 K/mm3 (140-440); Red Cell Distribution Width 13.9 % (13.2-15.2)
[2018-12-25 06:24] LABS: Calcium 8.3 mg/dL (8.4-10.2)
[2018-12-25] MEDS ORDERED: LEXISCAN IV ONE ×2 (08:05→08:11)
[2018-12-25] MEDS: PEPCID PO SCH ×2 (09:55→22:03)
[2018-12-25] MEDS: SODIUM CHLORIDE FLUSH SYRINGE 10 ML IV SCH ×2 (09:55→22:06)
[2018-12-25] MEDS: COREG PO SCH ×3 (09:55→22:03)
[2018-12-25] MEDS ORDERED: NORVASC PO SCH ×2 (10:00→11:39)
--- NOTE | 2018-12-25 10:45 | Progress Note ---
Assessment and Plan Assessment and plan: Accelerated hypertension. Better control. Continue Cardizem and Coreg IV hydralazine 10 mg every 3 hours when necessary Acute systolic heart failure. Echocardiogram reveals EF 30-35%, mod LVH, restr ictive diastolic filling, LA severely dilated, RV systolic function mildly reduced, mild AR, mild MR, mild TR, pulm HTN with RVSP 52mmHg, small pericardial effusion, small pleural effusion. Follow-up stress test to rule out ischemic cardiomyopathy. Cardiology added scheduled hydralazine. No ACEI/ARB at this time in setting of renal insufficiency. Pulmonary hypertension. Chronic kidney failure. Renal ultrasound suggests chronic medical renal disease. Nephrology following. Creatinine is stable. Left hydronephrosis. Urology following. CT scan of the abdomen and pelvis reviewed. Hypokalemia. Replete potassium. History Interval history: No new issues overnight. Hospitalist Physical - Constitutional Vitals: Temp Pulse Resp BP Pulse Ox 98.7 F 76 18 147/94 97 12/25/18 07:02 12/25/18 09:57 12/25/18 07:02 12/25/18 09:55 12/25/18 05:06 General appearance: Present: no acute distress - EENT Eyes: Present: PERRL, EOM intact ENT: hearing intact, clear oral mucosa, dentition normal - Neck Neck: Present: supple, normal ROM - Respiratory Respiratory effort: normal Respiratory: bilateral: CTA - Cardiovascular Rhythm: regular Heart Sounds: Present: S1 & S2. Absent: gallop, rub - Extremities Extremities: no ischemia, No edema, Full ROM - Abdominal General gastrointestinal: soft, non-tender, non-distended, normal bowel sounds - Integumentary Integumentary: Present: clear, warm, dry - Neurologic Neurologic: CNII-XII intact, moves all extremities Results - Labs CBC & Chem 7: 12/25/18 05:35 12/25/18 05:35 Labs: Laboratory Last Values WBC 3.6 K/mm3 (4.5-11.0) L 12/25/18 05:35 RBC 3.40 M/mm3 (3.65-5.03) L 12/25/18 05:35 Hgb 10.9 gm/dl (10.1-14.3) 12/25/18 05:35 Hct 31.9 % (30.3-42.9) 12/25/18 05:35 MCV 94 fl (79-97) 12/25/18 05:35 MCH 32 pg (28-32) 12/25/18 05:35 MCHC 34 % (30-34) 12/25/18 05:35 RDW 13.9 % (13.2-15.2) 12/25/18 05:35 Plt Count 147 K/mm3 (140-440) 12/25/18 05:35 Lymph % (Auto) 34.2 % (13.4-35.0) 12/25/18 05:35 [place] % (Auto) 10.3 % (0.0-7.3) H 12/25/18 05:35 Eos % (Auto) 3.7 % (0.0-4.3) 12/25/18 05:35 Baso % (Auto) 1.5 % (0.0-1.8) 12/25/18 05:35 Lymph # 1.2 K/mm3 (1.2-5.4) 12/25/18 05:35 [place] # 0.4 K/mm3 (0.0-0.8) 12/25/18 05:35 Eos # 0.1 K/mm3 (0.0-0.4) 12/25/18 05:35 Baso # 0.1 K/mm3 (0.0-0.1) 12/25/18 05:35 Seg Neutrophils % 50.3 % (40.0-70.0) 12/25/18 05:35 Seg Neutrophils # 1.8 K/mm3 (1.8-7.7) 12/25/18 05:35 Sodium 141 mmol/L (137-145) 12/25/18 05:35 Potassium 3.7 mmol/L (3.6-5.0) 12/25/18 05:35 Chloride 105.6 mmol/L (98-107) 12/25/18 05:35 Carbon Dioxide 26 mmol/L (22-30) 12/25/18 05:35 13 mmol/L 12/25/18 05:35 BUN 18 mg/dL (7-17) H 12/25/18 05:35 2.4 mg/dL (0.7-1.2) H 12/25/18 05:35 Estimated GFR 26 ml/min 12/25/18 05:35 8 % 12/25/18 05:35 Glucose 90 mg/dL (65-100) 12/25/18 05:35 4.8 % (4-6) 12/23/18 05:57 Calcium 8.3 mg/dL (8.4-10.2) L 12/25/18 05:35 Phosphorus 3.90 mg/dL (2.5-4.5) 12/25/18 05:35 0.80 mg/dL (0.1-1.2) 12/24/18 04:31 AST 14 units/L (5-40) 12/24/18 04:31 ALT 17 units/L (7-56) 12/24/18 04:31 111 units/L (35-129) 12/24/18 04:31 225 units/L (91-180) H 12/24/18 09:47 NT-Pro-B Natriuret Pep 27510 pg/mL (0-450) H 12/22/18 21:00 5.6 g/dL (6.3-8.2) L 12/24/18 04:31 2.7 g/dL (3.9-5) L 12/24/18 04:31 0.9 % 12/24/18 04:31 Yellow (Yellow) 12/24/18 01:30 Clear (Clear) 12/24/18 01:30 7.0 (5.0-7.0) 12/24/18 01:30 Ur Specific [place] 1.009 (1.003-1.030) 12/24/18 01:30 100 mg/dl mg/dL (Negative) 12/24/18 01:30 Neg mg/dL (Negative) 12/24/18 01:30 Neg mg/dL (Negative) 12/24/18 01:30 Neg (Negative) 12/24/18 01:30 Neg (Negative) 12/24/18 01:30 Neg (Negative) 12/24/18 01:30 < 2.0 mg/dL (<2.0) 12/24/18 01:30 Ur Leukocyte Esterase Neg (Negative) 12/24/18 01:30 < 1.0 /HPF (0.0-6.0) 12/24/18 01:30 2.0 /HPF (0.0-6.0) 12/24/18 01:30 U Epithel Cells (Auto) 1.0 /HPF (0-13.0) 12/24/18 01:30 None seen (None Seen) 12/24/18 01:30 76.7 mg/dL (0.1-20.0) H 12/24/18 01:30 Protein/Creatinin Ratio 2.23 12/24/18 01:30 29 mmol/L 12/24/18 01:30 171 mg/dL (5-11.8) H 12/24/18 01:30 Hep Bs Antigen Non-reactive (Negative) 12/24/18 09:46 Non-reactive (NonReactive) 12/24/18 09:37 HIV 1&2 Antibody Rapid Non react (Non React) 12/24/18 09:46 Non react (Non React) 12/24/18 09:46 None seen 12/24/18 09:46 Active Medications - Current Medications Current Medications: Generic Name Dose Route Start Last Admin Trade Name Freq PRN Reason Stop Dose Admin Acetaminophen 650 mg 12/23/18 05:37 Tylenol PO Q4H PRN Pain MILD(1-3)/Fever >100.5/BALDWIN Amlodipine Besylate 10 mg 12/25/18 10:00 12/25/18 09:55 Norvasc PO 10 mg QDAY LUDIVINA Administration Carvedilol 12.5 mg 12/24/18 15:00 12/25/18 09:55 Coreg PO 12.5 mg BID LUDIVINA Administration Famotidine 10 mg 12/23/18 10:00 12/25/18 09:55 Pepcid PO 10 mg BID LUDIVINA Administration Hydralazine HCl 10 mg 12/23/18 05:57 12/24/18 12:49 Apresoline IV 10 mg Q3H PRN Administration Blood Pressure Hydralazine HCl 25 mg 12/24/18 15:00 12/25/18 05:30 Apresoline PO 25 mg Q8HR LUDIVINA Administration Metoclopramide HCl 5 mg 12/23/18 05:51 Reglan IV Q6H PRN Nausea And Vomiting Morphine Sulfate 2 mg 12/23/18 05:37 Morphine IV Q4H PRN Pain, Moderate (4-6) Ondansetron HCl 4 mg 12/23/18 05:37 Zofran IV Q8H PRN Nausea And Vomiting Sodium Chloride 10 ml 12/23/18 10:00 12/25/18 09:55 Sodium Chloride Flush Syringe 10 Ml IV 10 ml BID LUDIVINA Administration Sodium Chloride 10 ml 12/23/18 05:37 Sodium Chloride Flush Syringe 10 Ml IV PRN PRN LINE FLUSH
[2018-12-25] MEDS ORDERED: COREG PO SCH (11:38)
[2018-12-25] MEDS: NORVASC PO SCH (12:11)
--- NOTE | 2018-12-25 12:12 | Progress Note ---
Assessment and Plan Adjust BP medicines for NICM - Coreg 25 mg BID, hydralazine 100 mg BID, Imdur 30 mg, Norvasc 5 mg daily. No ACEi/ARB secondary renal insufficiency. Lasix as needed. May be discharged from CVS standpoint if BP is controlled better. Patient seen by Dr. Poole. - Patient Problems (1) Acute HFrEF (heart failure with reduced ejection fraction) Current Visit: Yes Status: Acute (2) Acute renal failure Current Visit: Yes Status: Acute Qualifiers: Acute renal failure type: with acute tubular necrosis Qualified Code(s): N17.0 - Acute kidney failure with tubular necrosis (3) Hypertensive emergency Current Visit: Yes Status: Acute Subjective Date of service: 12/25/18 Principal diagnosis: acute on chronic kidney disease Interval history: No chest pain, no SOB. Objective Vital Signs Temp Pulse Pulse Resp BP BP Pulse Ox 12/25/18 11:45 98.1 F 76 18 132/89 97 12/25/18 09:57 76 12/25/18 09:55 76 147/94 12/25/18 08:13 152/94 12/25/18 08:11 164/98 12/25/18 08:10 166/102 12/25/18 08:09 159/109 12/25/18 08:00 86 12/25/18 07:45 166/115 12/25/18 07:02 98.7 F 76 18 147/94 12/25/18 05:30 72 143/95 12/25/18 05:07 98.7 F 12/25/18 05:06 79 18 143/95 97 12/25/18 00:00 73 12/24/18 23:58 97.9 F 12/24/18 23:57 81 18 141/94 98 12/24/18 21:35 80 132/89 12/24/18 21:34 80 132/89 12/24/18 20:23 98.2 F 12/24/18 20:21 76 20 132/89 96 12/24/18 18:33 98.2 F 78 18 142/92 12/24/18 18:29 77 148/92 99 12/24/18 16:57 98.6 F 77 125/84 97 12/24/18 16:00 73 12/24/18 15:23 82 127/82 12/24/18 15:21 82 127/82 12/24/18 15:20 85 127/82 97 12/24/18 12:51 82 162/103 12/24/18 12:49 82 162/109 - Physical Examination General: No Apparent Distress HEENT: Positive: PERRL, Normocephaly, Mucus Membranes Moist Neck: Positive: neck supple Cardiac: Positive: Reg Rate and Rhythm Lungs: Positive: clear to auscultation Neuro: Positive: Grossly Intact Abdomen: Positive: Unremarkable. Negative: Tender Skin: Negative: Rash Musculoskeletal: No Pain Extremities: Present: normal - Labs and Meds CBC 12/25/18 Range/Units 05:35 WBC 3.6 L (4.5-11.0) K/mm3 RBC 3.40 L (3.65-5.03) M/mm3 Hgb 10.9 (10.1-14.3) gm/dl Hct 31.9 (30.3-42.9) % Plt Count 147 (140-440) K/mm3 Lymph # 1.2 (1.2-5.4) K/mm3 [place] # 0.4 (0.0-0.8) K/mm3 Eos # 0.1 (0.0-0.4) K/mm3 Baso # 0.1 (0.0-0.1) K/mm3 Comprehensive Metabolic Panel 12/25/18 Range/Units 05:35 Sodium 141 (137-145) mmol/L Potassium 3.7 (3.6-5.0) mmol/L Chloride 105.6 (98-107) mmol/L Carbon Dioxide 26 (22-30) mmol/L BUN 18 H (7-17) mg/dL Creatinine 2.4 H (0.7-1.2) mg/dL Glucose 90 (65-100) mg/dL Calcium 8.3 L (8.4-10.2) mg/dL - Imaging and Cardiology EKG: report reviewed, image reviewed Pharmacologic stress test: report reviewed (No significant ischemia. Dilated LV. EF 27%. NICM.) Echo: report reviewed - Telemetry EKG Rhythm: Sinus Rhythm - EKG Sinus rhythms and dysrhythmias: sinus rhythm Chamber hypertrophy or enlargement: left ventricular hypertro Repolarization changes or abnormalities: repolarization abn secondary to ventricular hypertrophy
--- NOTE | 2018-12-25 12:50 | Progress Note ---
Assessment and Plan Acute Kidney Injury secondary to mild left hydronephrosis likely on underlying CKD secondary to HTN: - Renal function reviewed, SCr level was 2.4 today, yesterday's SCr level was 2.3 - Exact SCr baseline unknown - Pt with non-nephrotic range proteinuria - HIV, Hepatitis -> negative - C3, C4, [place], SPEP pending - Renal US mentioned compatible with CKD, mild left hydronephrosis - Urology consulted, s/p CT ABD Pelvis w/o contrast showed mild left pelvocaliectasis - Adjust BP medications as needed - Renally dose meds - Dickinson Catheter: No - Renal plan d/w Dr Woods Acute systolic CHF: - Cardiology on board, TTE showed EF 30-35%, s/p stress test on 12/25/18 - As per Cardiology Acclerated Hypertension: - Improved on current blood pressure regimen - Adjust meds if needed Subjective Date of service: 12/25/18 Principal diagnosis: acute on chronic kidney disease Interval history: Pt seen in bed, denies shortness of breath, states she feels ok today, no acute distress. No family at bedside Objective - Vital Signs Vital signs: Vital Signs - 12hr 12/25/18 12/25/18 12/25/18 05:06 05:07 05:30 Temperature 98.7 F Pulse Rate 79 72 Pulse Rate [ From Monitor] Respiratory 18 Rate Blood Pressure 143/95 143/95 Blood Pressure [Left] O2 Sat by Pulse 97 Oximetry 12/25/18 12/25/18 12/25/18 07:02 07:45 08:00 Temperature 98.7 F Pulse Rate 76 86 Pulse Rate [ From Monitor] Respiratory 18 Rate Blood Pressure 147/94 166/115 Blood Pressure [Left] O2 Sat by Pulse Oximetry 12/25/18 12/25/18 12/25/18 08:09 08:10 08:11 Temperature Pulse Rate Pulse Rate [ From Monitor] Respiratory Rate Blood Pressure 159/109 166/102 164/98 Blood Pressure [Left] O2 Sat by Pulse Oximetry 12/25/18 12/25/18 12/25/18 08:13 09:55 09:57 Temperature Pulse Rate 76 Pulse Rate [ 76 From Monitor] Respiratory Rate Blood Pressure 152/94 147/94 Blood Pressure [Left] O2 Sat by Pulse Oximetry 12/25/18 11:45 Temperature 98.1 F Pulse Rate 76 Pulse Rate [ From Monitor] Respiratory 18 Rate Blood Pressure Blood Pressure 132/89 [Left] O2 Sat by Pulse 97 Oximetry - General Appearance General appearance: other (awake, alert) EENT: ATNC Neck: no JVD Respiratory: Present: Decreased Breath Sounds Cardiology: regular, S1S2 Gastrointestinal: normoactive bowel sounds, no tenderness Integumentary: warm and dry Neurologic: alert and oriented x3 Musculoskeletal: other (no edema to BLE) Psychiatric: cooperative - Lab 12/25/18 05:35 12/25/18 05:35 Most recent lab results Calcium 8.3 mg/dL (8.4-10.2) L 12/25/18 05:35 Phosphorus 3.90 mg/dL (2.5-4.5) 12/25/18 05:35 76.7 mg/dL (0.1-20.0) H 12/24/18 01:30 29 mmol/L 12/24/18 01:30 171 mg/dL (5-11.8) H 12/24/18 01:30 Medications & Allergies - Medications Allergies/Adverse Reactions: Allergies No Known Allergies Allergy (Verified 12/22/18 21:41) Home Medications: Home Medications Medication Instructions Recorded Confirmed Last Taken Type No Known Home Medications [No 12/22/18 12/22/18 Unknown History Reported Home Medications] Active Medications: Generic Name Dose Route Start Last Admin Trade Name Freq PRN Reason Stop Dose Admin Acetaminophen 650 mg 12/23/18 05:37 Tylenol PO Q4H PRN Pain MILD(1-3)/Fever >100.5/BALDWIN Amlodipine Besylate 5 mg 12/25/18 12:00 12/25/18 12:11 Norvasc PO Not Given QDAY LUDIVINA Carvedilol 25 mg 12/25/18 12:00 12/25/18 12:11 Coreg PO Not Given Q12HR LUDIVINA Famotidine 10 mg 12/23/18 10:00 12/25/18 09:55 Pepcid PO 10 mg BID LUDIVINA Administration Hydralazine HCl 10 mg 12/23/18 05:57 12/24/18 12:49 Apresoline IV 10 mg Q3H PRN Administration Blood Pressure Hydralazine HCl 100 mg 12/25/18 22:00 Apresoline PO Q12HR LUDIVINA Metoclopramide HCl 5 mg 12/23/18 05:51 Reglan IV Q6H PRN Nausea And Vomiting Morphine Sulfate 2 mg 12/23/18 05:37 Morphine IV Q4H PRN Pain, Moderate (4-6) Ondansetron HCl 4 mg 12/23/18 05:37 Zofran IV Q8H PRN Nausea And Vomiting Sodium Chloride 10 ml 12/23/18 10:00 12/25/18 09:55 Sodium Chloride Flush Syringe 10 Ml IV 10 ml BID LUDIVINA Administration Sodium Chloride 10 ml 12/23/18 05:37 Sodium Chloride Flush Syringe 10 Ml IV PRN PRN LINE FLUSH
[2018-12-25] MEDS: APRESOLINE IV PRN (20:43)
[2018-12-25] MEDS ORDERED: APRESOLINE PO SCH (22:00)
--- NOTE | 2018-12-25 22:27 | Treadmill Report ---
NUCLEAR CARDIAC STRESS TEST REASON FOR STUDY: Cardiomyopathy. IMAGING PROTOCOL: Single isotope protocol. IMAGING RESULTS: Cavity is dilated on both stress and rest with normal distribution in anterior, inferior, septal, and apical regions. EF is 27% with severe global hypokinesis. The patient infused Lexiscan with no EKG changes. SUMMARY: 1. Negative Lexiscan EKG. 2. No significant stress induced ischemia. Normal perfusion anterior, inferior, septal, and apical regions. Gated SPECT, EF 27% with LV dilatation, severe LV dysfunction. This is consistent with nonischemic cardiomyopathy. JOB# [id number] CHER/DEONTE
--- NOTE | 2018-12-26 08:46 | Discharge Summary ---
Providers - Providers Date of Admission: 12/22/18 23:18 Date of discharge: 12/26/18 Attending physician: PINKY MARRERO 12/23/18 05:56 Consult to Physician [CONS] Routine Comment: Consulting Provider: CHACORTA MONTESINOS Physician Instructions: Reason For Exam: YG/CKD Consult to Physician [CONS] Routine Comment: Consulting Provider: HARJEET JACKSON Physician Instructions: Reason For Exam: CHF exacerbation Primary care physician: [facility], Hospitalization Reason for admission: chf Condition: Stable Hospital course: The pt is a 48-year-old female with history of uncontrolled hypertension who presented with c/o BLE swelling and progressively worsening SOB for the past 1 month [employer]. She had not taken blood pressure medicine in over one year due to lack of health insurance. She denied any chest pain, palpitations, n/v, diaphoresis, dizziness or syncope. She denied any known CAD, AMI or HF. No prior cardiac w/u. Patient was admitted with diagnosis of acute hypoxic respiratory failure secondary to acute systolic heart failure, renal failure and accelerated hypertension. Patient was seen by cardiology in consultation. This underwent echocardiogram which revealed 30-35%, mod LVH, restrictive diastolic filling, LA severely dilated, RV systolic function mildly reduced, mild AR, mild MR, mild TR, pulm HTN with RVSP 52mmHg, small pericardial effusion, small pleural effusion. Patient also had a stress test to rule out ischemic cardiomyopathy. Stress test being negative for ischemia. With regards to the renal failure, patient was seen by nephrology in consultation. Nephrology felt that patient likely had underlying chronic kidney disease. Exact baseline creatinine unknown. Renal ultrasound was compatible with chronic kidney disease but did reveal mild left hydronephrosis. Urology was consulted and recommended CT of abdomen and pelvis without contrast which showed mild left pelvocaliectasis. Patient will be followed up as an outpatient with urology. Patient's hypertension was addressed with Coreg, hydralazine, Imdur and Norvasc and stabilized. Heart failure resolved. Patient was felt to have received maximal hospital benefit for discharge. Dedicated discharge time 35 minutes. Disposition: TO HOME OR SELFCARE Time spent for discharge: 35 - Discharge Diagnoses (1) Acute HFrEF (heart failure with reduced ejection fraction) Status: Acute (2) Acute renal failure Status: Acute Qualifiers: Acute renal failure type: with acute tubular necrosis Qualified Code(s): N17.0 - Acute kidney failure with tubular necrosis (3) Hydronephrosis Status: Acute (4) Hypertensive emergency Status: Acute (5) Hypokalemia Status: Acute (6) Uncontrolled hypertension Status: Acute (7) Cardiomyopathy Status: Chronic Core Measure Documentation - Palliative Care Palliative Care/ Comfort Measures: Not Applicable - Core Measures Any of the following diagnoses?: none Exam - Constitutional Vitals: Temp Pulse Resp BP Pulse Ox 98.7 F 81 16 146/94 93 12/26/18 08:18 12/26/18 08:18 12/26/18 08:18 12/26/18 08:18 12/26/18 08:18 General appearance: Present: no acute distress, well-nourished - EENT Eyes: Present: PERRL ENT: hearing intact, clear oral mucosa - Neck Neck: Present: supple, normal ROM - Respiratory Respiratory effort: normal Respiratory: bilateral: CTA - Cardiovascular Heart Sounds: Present: S1 & S2. Absent: rub, click - Extremities Extremities: pulses symmetrical, No edema Peripheral Pulses: within normal limits - Abdominal General gastrointestinal: Present: soft, non-tender, non-distended, normal bowel sounds Female genitourinary: Present: normal - Integumentary Integumentary: Present: clear, warm, dry - Musculoskeletal Musculoskeletal: gait normal, strength equal bilaterally - Psychiatric Psychiatric: appropriate mood/affect, intact judgment & insight - Neurologic Neurologic: CNII-XII intact, moves all extremities Plan Activity: advance as tolerated Weight Bearing Status: Weight Bear as Tolerated Diet: low fat, low salt Special Instructions: restrict fluid intake to (1L) Follow up with: REYES HAQ MD [Staff Physician] - 7 Days RYLAN GREGG MD [Staff Physician] - 7 Days [facility] MD DAYANA [Primary Care Provider] - 7 Days SOLEDAD KING MD [Staff Physician] - 7 Days Prescriptions: hydrALAZINE [Apresoline TAB] 100 mg PO Q12HR #60 tab Carvedilol [Coreg] 25 mg PO Q12HR #60 tablet ISOSORBIDE MONOnitrate [Imdur ER] 30 mg PO DAILY #30 tab.er.24h amLODIPine [Norvasc] 5 mg PO QDAY #30 tablet
[2018-12-26] MEDS: PEPCID PO SCH (09:41)
[2018-12-26] MEDS: COREG PO SCH (09:42)
[2018-12-26] MEDS: SODIUM CHLORIDE FLUSH SYRINGE 10 ML IV SCH (09:42)
[2018-12-26] MEDS: APRESOLINE PO SCH (09:42)
[2018-12-26] MEDS: NORVASC PO SCH (09:44)
[2018-12-26 10:46] LABS: Basophils % (Auto) 1.6 % (0.0-1.8); Eosinophils # (Auto) 0.1 K/mm3 (0.0-0.4); Eosinophils % (Auto) 3.9 % (0.0-4.3); Hematocrit 33.9 % (30.3-42.9); Hemoglobin 11.2 gm/dl (10.1-14.3); Lymphocytes # (Auto) 1.1 K/mm3 (1.2-5.4); Mean Corpuscular HGB Conc 33 % (30-34); Mean Corpuscular Volume 94 fl (79-97); Monocytes # (Auto) 0.3 K/mm3 (0.0-0.8); Monocytes % (Auto) 9.5 % (0.0-7.3); Platelet Count 154 K/mm3 (140-440); Red Cell Distribution Width 13.8 % (13.2-15.2)
[2018-12-26 10:50] LABS: Calcium 8.4 mg/dL (8.4-10.2)
--- NOTE | 2018-12-26 12:08 | Progress Note ---
Assessment and Plan Patient is nonischemic cardio myopathy BP has markedly improved will continue with his current medications follow up in the office this week - Patient Problems (1) Acute HFrEF (heart failure with reduced ejection fraction) Current Visit: Yes Status: Acute (2) Acute renal failure Current Visit: Yes Status: Acute Qualifiers: Acute renal failure type: with acute tubular necrosis Qualified Code(s): N17.0 - Acute kidney failure with tubular necrosis (3) Hypertensive emergency Current Visit: Yes Status: Acute Subjective Date of service: 12/26/18 Principal diagnosis: acute on chronic kidney disease Interval history: no sob Objective Vital Signs Temp Pulse Resp BP BP Pulse Ox 12/26/18 10:00 16 12/26/18 09:44 146/94 12/26/18 09:42 81 146/94 12/26/18 08:18 98.7 F 81 16 146/94 93 12/26/18 05:06 98.5 F 12/26/18 05:05 83 18 146/93 93 12/26/18 04:30 71 12/26/18 00:07 71 12/25/18 23:22 98.3 F 12/25/18 23:21 77 18 125/79 97 12/25/18 22:04 158/101 12/25/18 22:03 82 158/101 12/25/18 20:43 80 164/113 12/25/18 20:25 98.5 F 12/25/18 20:24 79 18 164/113 98 12/25/18 19:35 81 12/25/18 15:20 98.1 F 82 18 144/97 98 - Physical Examination General: No Apparent Distress HEENT: Positive: PERRL, Normocephaly, Mucus Membranes Moist Neck: Positive: neck supple Cardiac: Positive: Reg Rate and Rhythm Lungs: Positive: clear to auscultation Neuro: Positive: Grossly Intact Abdomen: Positive: Unremarkable. Negative: Tender Skin: Negative: Rash Musculoskeletal: No Pain Extremities: Present: normal - Labs and Meds CBC 12/26/18 Range/Units 09:28 WBC 3.1 L (4.5-11.0) K/mm3 RBC 3.60 L (3.65-5.03) M/mm3 Hgb 11.2 (10.1-14.3) gm/dl Hct 33.9 (30.3-42.9) % Plt Count 154 (140-440) K/mm3 Lymph # 1.1 L (1.2-5.4) K/mm3 [place] # 0.3 (0.0-0.8) K/mm3 Eos # 0.1 (0.0-0.4) K/mm3 Baso # 0.0 (0.0-0.1) K/mm3 Comprehensive Metabolic Panel 12/26/18 Range/Units 09:28 Sodium 140 (137-145) mmol/L Potassium 3.6 (3.6-5.0) mmol/L Chloride 104.5 (98-107) mmol/L Carbon Dioxide 26 (22-30) mmol/L BUN 14 (7-17) mg/dL Creatinine 2.4 H (0.7-1.2) mg/dL Glucose 149 H (65-100) mg/dL Calcium 8.4 (8.4-10.2) mg/dL - Imaging and Cardiology EKG: report reviewed, image reviewed Echo: report reviewed - Telemetry EKG Rhythm: Sinus Rhythm - EKG Sinus rhythms and dysrhythmias: sinus rhythm Chamber hypertrophy or enlargement: left ventricular hypertro Repolarization changes or abnormalities: repolarization abn secondary to ventricular hypertrophy
[2018-12-26 13:41] VITALS: BP 132/86
[2018-12-29 21:10] LABS: ANA Screen, IFA Negative (Negative)
[2018-12-29 21:14] LABS: Albumin 2.5 g/dL (3.8-4.8); Gamma Globulin 0.9 g/dL (0.8-1.7)
== END 2018-12-26 13:41 | disposition home or self-care (01) | DRG 682 ==
LOC: ED 20:16 → 4A 23:18
PROVIDERS: ADMIT Internal Medicine; ATTEND Hospitalist
DX: N17.0 Acute kidney failure with tubular necrosis (principal); I50.41 Acute combined systolic (congestive) and diastolic (congestive) heart failure; J96.01 Acute respiratory failure with hypoxia; I13.0 Hypertensive heart and chronic kidney disease with heart failure and stage 1 through stage 4 chronic kidney disease, or unspecified chronic kidney disease; I16.1 Hypertensive emergency; I31.3 Pericardial effusion (noninflammatory); I42.9 Cardiomyopathy, unspecified; N13.30 Unspecified hydronephrosis; I27.20 Pulmonary hypertension, unspecified; I08.1 Rheumatic disorders of both mitral and tricuspid valves; F12.90 Cannabis use, unspecified, uncomplicated; E87.6 Hypokalemia; N18.9 Chronic kidney disease, unspecified; Z82.49 Family history of ischemic heart disease and other diseases of the circulatory system; Z79.899 Other long term (current) drug therapy
CPT/HCPCS: 36415; 71046; 74176; 76770; 78452; 80048; 80053; 81001; 82570; 83036; 83615; 83880; 84100; 84156; 84165; 84300; 85025; 86038; 86160; 86706; 86803; 87806; 89050; 93005; 93010; 93017; 93306; 96374; 96375; G0378; A9502; J0360; J2785